=== PATIENT | female | born 1950 ===

== ENCOUNTER 2019-01-26 09:46 | Emergency (ER) | payer OTHER ==
[~2019-01-26] VITALS: Ht 165.1 cm; Wt 97.1 kg
[~2019-01-26 09:46] MED LIST: DIABETA2.5 MG PO; HYZAAR 100-121 UDTAB PO; LISINOPRIL2.5 MG PO; METFORMIN HCL500 M1 PO; VERAPAMIL HCL40 MG PO; VYTORIN 10/20 M1 TAB PO
[2019-01-26] MEDS ORDERED: VYTORIN 10-401 EACH (10:24)
[2019-01-26] MEDS ORDERED: IRBESARTAN150 MG (10:24)
[2019-01-26] MEDS ORDERED: VERAPAMIL ER240 MG (10:24)
[2019-01-26] MEDS ORDERED: HYDRALAZINE HCL25 MG (10:25)
[2019-01-26] MEDS ORDERED: FOLGARD TABLET1 EACH (10:25)
[2019-01-26] MEDS ORDERED: JANUVIA100 MG (10:26)
[2019-01-26] MEDS ORDERED: PROTONIX40 MG (10:26)
== END 2019-01-26 15:50 | disposition home or self-care (01) ==
LOC: ER 09:46
DX: R10.32 Left lower quadrant pain (principal)